=== PATIENT | male | born 2000 | race American Indian/Alaskan Native ===

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

== ENCOUNTER 2018-02-02 21:14 | Emergency (ER) | payer SELFPAY ==
[2018-02-02 21:30] VITALS: BP 151/109
[2018-02-02] MEDS ORDERED: ASPIRIN PO ONE (22:09)
[2018-02-02 22:30] LABS: Basophils # (Auto) 0.1 K/mm3 (0.0-0.1); Basophils % (Auto) 0.6 % (0.0-1.8); Eosinophils # (Auto) 0.1 K/mm3 (0.0-0.4); Eosinophils % (Auto) 0.8 % (0.0-4.3); Hematocrit 45.9 % (35.5-45.6); Hemoglobin 15.4 gm/dl (11.8-15.2); Lymphocytes # (Auto) 2.5 K/mm3 (1.2-5.4); Lymphocytes % (Auto) 19.5 % (13.4-35.0); Mean Corpuscular HGB Conc 34 % (32-34); Mean Corpuscular Hemoglobin 29 pg (28-32); Mean Corpuscular Volume 87 fl (84-94); Monocytes # (Auto) 1.1 K/mm3 (0.0-0.8); Monocytes % (Auto) 8.7 % (0.0-7.3); Platelet Count 356 K/mm3 (140-440); Red Blood Count 5.27 M/mm3 (3.65-5.03); Red Cell Distribution Width 13.2 % (13.2-15.2)
[2018-02-02 22:45] LABS: BUN/Creatinine Ratio 16; Blood Urea Nitrogen 14 mg/dL (9-20); Calcium 9.6 mg/dL (8.4-10.2); Hemolysis Index 9
== END 2018-02-02 22:14 ==
LOC: ED 21:14
DX: N48.89 Other specified disorders of penis (principal); R07.89 Other chest pain; Z53.21 Procedure and treatment not carried out due to patient leaving prior to being seen by health care provider
CPT/HCPCS: 36415; 80048; 84484; 85025; 93005; 93010; G0480; 80320

== ENCOUNTER 2018-05-02 13:22 | Emergency (ER) | payer OTHER ==
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
[2018-05-02] MEDS ORDERED: NACL 0.9% 1000 ML 1,000 ML IV ONE ×3 (14:06→17:26)
[2018-05-02 14:29] LABS: Hemoglobin 15.8 gm/dl (11.8-15.2); Mean Corpuscular HGB Conc 35 % (32-34); Mean Corpuscular Hemoglobin 30 pg (28-32); Mean Corpuscular Volume 86 fl (84-94); Platelet Count 363 K/mm3 (140-440); Red Blood Count 5.22 M/mm3 (3.65-5.03); Red Cell Distribution Width 13.6 % (13.2-15.2)
[2018-05-02 14:44] LABS: Albumin 4.4 g/dL (3.9-5); Calcium 10.1 mg/dL (8.4-10.2)
[2018-05-02 15:05] LABS: Band Neutrophils # (Manual) 0.3 K/mm3; Basophils % (Manual) 0 % (0.0-1.8); Eosinophils % (Manual) 0 % (0.0-4.3); Total Cells Counted 100
[2018-05-02 15:06] LABS: Large Platelets Few; Platelet Estimate Cons; RBC Morphology Normal
[2018-05-02 16:00] LABS: Bilirubin,Urine SM (Negative); Blood,Urine NEG (Negative); Color,Urine Dark Yellow (Yellow); Hyaline Casts,Urine 37 /LPF; Mucus,Urine 3+ /HPF
[2018-05-02 16:02] LABS: Benzodiazepines Screen,Urine PRESUMPTIVE NEGATIVE; Cocaine Screen,Urine PRESUMPTIVE NEGATIVE; Methadone Screen,Urine PRESUMPTIVE NEGATIVE; Opiate Screen,Urine PRESUMPTIVE NEGATIVE
[2018-05-02 16:05] LABS: Ictotest,Urine Positive (Negative)
[2018-05-02 16:16] LABS: Amphetamine Screen,Urine PRESUMPTIVE POSITIVE; Cannabinoid Screen,Urine PRESUMPTIVE POSITIVE
[2018-05-02] MEDS ORDERED: LEVAQUIN 500MG/100ML 500 MG/100 ML BAG IV ONE (16:18)
--- NOTE | 2018-05-02 16:22 | Cat Scan Report ---
FINAL REPORT EXAM: CT HEAD/BRAIN WO CON HISTORY: Medical Clearance Psych TECHNIQUE: Standard unenhanced CT of the head at 5.0 millimeter axial increments. PRIORS: None. FINDINGS: The ventricular system is normal in size and configuration. There is no evidence for parenchymal volume loss. There is no evidence for mass lesion, mass effect, midline shift, acute intracranial hemorrhage, or acute ischemia/ infarction. No evidence for acute skull fracture is seen. No abnormality in the overlying scalp soft tissues is seen. Visualized paranasal sinuses are clear. IMPRESSION: Negative CT of the head. No acute intracranial process noted.
--- NOTE | 2018-05-02 17:23 | Emergency Department Report ---
HPI - General Chief Complaint: Psych Time Seen by Provider: 05/02/18 13:22 ED Past Medical Hx - Past Medical History Previous Medical History?: Yes Hx Hypertension: Yes Hx Psychiatric Treatment: Yes (Schizophrenia) Additional medical history: heart condition in child aniket, mom unsure of name. - Surgical History Past Surgical History?: No - Social History Smoking Status: Current Every Day Smoker Substance Use Type: Other (pt denies. ) - Medications Home Medications: Home Medications Medication Instructions Recorded Confirmed Last Taken Type Sulfamethoxazole/Trimethoprim 1 each PO Q12HR 10 Days #20 tablet 05/02/18 Unknown Rx [Bactrim Ds Tablet] ED Review of Systems ROS: Stated complaint: ALTERED MENTAL STATUS Other details as noted in HPI Physical Exam - Physical Exam Vital Signs: Vital Signs 05/02/18 14:30 Temperature 98.9 F Pulse Rate 158 H Respiratory 20 Rate Blood Pressure 144/60 [Left] O2 Sat by Pulse 100 Oximetry ED Course Vital Signs 05/02/18 14:30 Temperature 98.9 F Pulse Rate 158 H Respiratory 20 Rate Blood Pressure 144/60 [Left] O2 Sat by Pulse 100 Oximetry - Reevaluation(s) Reevaluation #1: 05/02/18 17:55 I received sign out from Dr. Patel to check the result of the head CT scan and if negative to medically clear patient for psych evaluation. On reevaluation, patient is awake and he answered all my questions appropriately. He does not have any medical complaint at this time. I will go ahead and medically clear for psychiatric evaluation. Patient is medically cleared for psychiatric evaluation. ED Medical Decision Making - Lab Data Result diagrams: 05/02/18 Unknown 05/02/18 Unknown Critical care attestation.: If time is entered above; I have spent that time in minutes in the direct care of this critically ill patient, excluding procedure time. ED Disposition Clinical Impression: Acute psychosis, Agitation, Combative behavior, Tachycardia, Dehydration, Drug abuse, PADMAJA (acute kidney injury) Altered mental status, unspecified Qualifiers: Altered mental status type: unspecified Qualified Code(s): R41.82 - Altered mental status, unspecified UTI (urinary tract infection) Qualifiers: Urinary tract infection type: acute cystitis Hematuria presence: without hematuria Qualified Code(s): N30.00 - Acute cystitis without hematuria Disposition: DC/TX-65 PSY HOSP/PSY UNIT Is pt being admited?: No Does the pt Need Aspirin: No Condition: Stable Prescriptions: Sulfamethoxazole/Trimethoprim [Bactrim Ds Tablet] 1 each PO Q12HR 10 Days #20 tablet Referrals: PRIMARY CARE, [Primary Care Provider] - 3-5 Days Time of Disposition: 18:00
[2018-05-02 18:10] LABS: BUN/Creatinine Ratio 9; Blood Urea Nitrogen 12 mg/dL (9-20); Calcium 9.2 mg/dL (8.4-10.2); Hemolysis Index 7
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
[2018-05-04 10:35] LABS: Lipase 18 units/L (13-60)
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
[2018-05-06 09:20] VITALS: BP 147/92
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
[2018-05-06] MEDS ORDERED: LEVAQUIN PO SCH (10:00)
== END 2018-05-06 11:30 ==
LOC: EEVIPCON 13:22 → ED 13:22
DX: F31.9 Bipolar disorder, unspecified (principal); E86.0 Dehydration; N30.00 Acute cystitis without hematuria; R00.0 Tachycardia, unspecified; F15.10 Other stimulant abuse, uncomplicated; F12.10 Cannabis abuse, uncomplicated; F20.9 Schizophrenia, unspecified; F17.200 Nicotine dependence, unspecified, uncomplicated; Z88.1 Allergy status to other antibiotic agents
CPT/HCPCS: 36415; 70450; 80048; 80053; 80164; 80307; 81001; 82150; 82550; 83690; 84443; 85007; 85025; 93005; 93010; 96361; 96365; 99285; G0480; J1956; J7030; 80320